=== PATIENT | female | born 1980 | race Two or more races ===

== ENCOUNTER 2020-11-24 10:37 | Emergency (ER) | payer SELFPAY ==
[~2020-11-24] VITALS: Ht 160 cm; Wt 77.1 kg
--- NOTE | 2020-11-24 10:37 | NUR ---
pt bib ra [address] pt was reported to have bizzarre behavior, while in er, pt calm and cooperative, no sign of distress, alert and oriented. asked the pt if he has some body that we can call for help. pt did not provided any information in this regard.
--- NOTE | 2020-11-24 11:09 | NUR ---
assissted pt with total body cleaning, by providing towels anfd hygiene products. pt very appreciative. clean set of clothing/ sandwich provided for pt.
--- NOTE | 2020-11-24 11:17 | NUR ---
pt walked out of er in steady gait. did not want to wait for social service liaison. told the pt that she can come back any time.
== END 2020-11-24 11:17 | disposition home or self-care (01) ==
LOC: ER 10:39
DX: Z00.00 Encounter for general adult medical examination without abnormal findings (principal); Z59.0 Homelessness; R03.0 Elevated blood-pressure reading, without diagnosis of hypertension
CPT/HCPCS: A4663